=== PATIENT | female | born 1955 | race Caucasian/White ===

== ENCOUNTER → 2016-08-08 | Outpatient (CLI) | payer MEDICARE ==
[~2016-08-08] MED LIST: ALPRAZOLAM PO; AMBIEN PO; ASPIRIN81 M2 PO; AUGMENTIN875 M1 DOB; AUGMENTIN875 MG PO; CELEXA PO; CLONIDINE HCL0.1 MG PO; CYMBALTA PO; DAKIN'S MODIF1000 ML EXT; EFFEXOR PO; FLEXERIL10 MG PO; LISINOPRIL20 MG PO; LITHIUM PO; MELATONIN10 M1 PO; NIASPAN PO; OXYCODON HCL-AP1 TA2 PO; OXYCONTIN PO; OXYCONTIN60 MG PO; PREDNISONE5 M1 PO; PRILOSEC PO; ROXICODONE15 MG PO; SOMA PO; SYNTHROID PO; SYNTHROID0.1 MG PO; TOPIRAGEN100 MG PO; TOPROL XL PO; VALIUM10 MG PO; VICODIN 5/500 T1 TAB PO; VOLTAREN75 MG PO; ZESTORETIC 20/11 TAB PO; ZOCOR PO; ZOCOR20 MG PO; ZOFRAN SL; ZYVOX600 MG PO
--- NOTE | ~2016-08-08 | MY11 ---
[facility] A Service of [facility] RADIOLOGY TEXT RESULTS PATIENT: JUAN R BARR LOCATION: [facility] : 51 UNIT #: [id number] AGE: [address]: Segun Penn MD SEX: F ORDER DR: [id number] [address] [address] [id number] O MR#: [id number] Acc #: [id number] NAME: JUAN R BARR : 1955 SEX: F STUDY DATE/TIME: 08/08/2016 15:27 UNIT: [facility] ROOM: STUDY DESCRIPTION: MY Mammogram Screening Dig Dileep Attending Physician: Segun Penn M.D. Referring Physician: Segun Penn M.D. Ordering Physician: Segun Penn M.D. Primary Care Physician: Maximo Santo M.D. MEDICAL IMAGING REPORT This report is preliminary unless electronic signature is present. EXAM Bilateral digital screening mammogram with CAD. DATE OF EXAM 08/08/2016 INDICATIONS 61-year-old female for routine screening. No reported problems. No personal history of breast cancer. Family history positive in the patient's mother. No surgeries. TECHNIQUE CC and MLO views of the breast were obtained and reviewed with an FDA-approved CAD device. COMPARISON 05/04/2015, 05/01/2014, 03/15/2013. FINDINGS Breast parenchyma is heterogeneously dense. This degrades sensitivity of screening moderately. The pattern is unchanged. Mole markers are present. There is no new dominant nodule mass or suspicious clustered microcalcifications. Benign calcifications are present. Asymmetrically prominent breast tissue in the 12 o'clock position right breast, stable. IMPRESSION 1. Benign screening mammogram, 1 year followup recommended. 2. BIRADS category 2. Patients over the age of 40 are entered into a reminder system with target due date for the next mammogram. A result letter will also be sent to the patient. [facility] A Service of [facility] RADIOLOGY TEXT RESULTS PATIENT: JUAN R BARR LOCATION: [facility] : 51 UNIT #: [id number] AGE: [address]: Segun Penn MD SEX: F ORDER DR: BIRADS: 2 Benign findings. Dictated by... Jose Álvarez M.D. THIS IS AN ELECTRONICALLY VERIFIED REPORT Jose Álvarez M.D. at 08/11/2016 7:43 AM NAMAN/jazzy TD: 08/09/2016 00:26 JOB #: [id number] MEDICAL IMAGING REPORT
== END | disposition home or self-care (01) ==
LOC: SMAM 14:58
DX: Z12.31 Encounter for screening mammogram for malignant neoplasm of breast (principal); Z80.3 Family history of malignant neoplasm of breast
CPT/HCPCS: G0202

== ENCOUNTER 2017-02-08 13:13 | Emergency (ER) | payer MEDICARE ==
[~2017-02-08] VITALS: Ht 172.7 cm; Wt 93.0 kg
--- NOTE | ~2017-02-08 | CT4 ---
[facility]. [facility] A Service of [facility] RADIOLOGY TEXT RESULTS PATIENT: JUAN R BARR LOCATION: SED : 51 UNIT #: [id number] AGE: [address]: Zeny Galicia MD SEX: F ORDER DR: [id number] [address] [address] [id number] E MR#: [id number] Acc #: [id number] NAME: JUANR BARR : 1955 SEX: F STUDY DATE/TIME: 02/08/2017 14:18 UNIT: SED ROOM: STUDY DESCRIPTION: CT Abd and Pelv Wo Cont Attending Physician: Zeny Galicia M.D. Ordering Physician: Zeny Galicia M.D. Primary Care Physician: Maximo Santo M.D. MEDICAL IMAGING REPORT This report is preliminary unless electronic signature is present. EXAM CT abdomen and pelvis without contrast. HISTORY Diarrhea for 2 weeks. TECHNIQUE Axial images performed through the abdomen and pelvis without contrast. Multiplanar reconstructed images reviewed. This CT exam was performed with one or more of the following radiation dose reduction techniques: automatic exposure control, adjustment of mA and/or kV according to patient size, and iterative reconstruction. FINDINGS Abdomen: Lung bases unremarkable except for minimal interstitial prominence. Liver suggests mild fatty infiltration. The splenic granulomas. Gallbladder surgically absent. Pancreas, kidneys and adrenal glands appear normal. No free air or free fluid. The visualized GI tract to include the appendix normal. Retroperitoneum unremarkable. Pelvis: Bladder decompressed. Uterus appears atrophic. 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 There is chronic-appearing T1 compression fracture, about 50% loss of the anterior vertebral body height. IMPRESSION 1. No acute intraabdominal intrapelvic pathology identified in this patient with diarrhea for 2 weeks. 2. 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 There is a chronic-appearing anterior compression fracture deformity L1 with greater than 50% loss anterior vertebral body STS. [facility] A Service of [facility] RADIOLOGY TEXT RESULTS PATIENT: JUAN R BARR LOC[place]: [facility] [place] 51 UNIT #: [id number] AGE: [address]: Zeny Galicia MD SEX: F ORDER DR: height. 3. Not mentioned above, there is moderate L4-5 spinal stenosis due to circumferential disc bulge. There is also posterior disc bulging L5-S1. 4. Suspected hepatic steatosis. Dictated by... Tri Khan M.D. THIS IS AN ELECTRONICALLY VERIFIED REPORT Tri Khan M.D. at 02/09/2017 10:03 AM [facility] TD: 02/09/2017 09:10 JOB #: [id number] MEDICAL IMAGING REPORT Page 1 of 1
[2017-02-08 14:07] LABS: BASOPHIL# 0.2 X10e3 (0-0.3); BASOPHIL% 1.4 % (0-2.5); EOSINOPHIL# 0.2 X10e3 (0-0.7); EOSINOPHIL% 1.6 % (0.0-7.0); HEMATOCRIT 48.9 % (35.0-45.0); LYMPHOCYTE# 2.8 X10e3 (1.0-3.5); LYMPHOCYTE% 26.4 % (17.0-45.0); MEAN CELL VOLUME 95.3 FL (83-96); MEAN CORPUSCULAR HEMOGLOBIN 33.1 PG (28-34); MEAN CORPUSCULAR HGB CONC 34.7 g/dL (30-36); MEAN PLATELET VOLUME 8.5 FL (6.5-11.5); MONOCYTE# 0.7 X10e3 (0-1.0); MONOCYTE% 6.5 % (3.0-12.0); NEUTROPHIL# 6.7 X10e3 (1.5-7.1); NEUTROPHIL% 64.1 % (40-75); PLATELET COUNT 308 X10e3 (140-420); RED BLOOD COUNT 5.13 X10e (3.90-5.30); RED CELL DISTRIBUTION WIDTH 13.1 % (11.0-15.5); WHITE BLOOD COUNT 10.5 X10e3 (4.0-10.5)
[2017-02-08 14:09] LABS: DIFF IND NO
[2017-02-08 14:38] LABS: ALBUMIN SERUM 4.4 g/dL (3.5-5.0); BILIRUBIN, DIRECT 0.1 mg/dL (0.0-0.2); BILIRUBIN,INDIRECT 0.6 mg/dL (0.0-0.9); BILIRUBIN,TOTAL 0.7 mg/dL (0.2-2.0); CALCIUM SERUM 9.4 mg/dL (8.4-10.2); CREATININE SERUM 1.2 mg/dL (0.6-1.4); GLOM FILT RATE Estimated 48.1 mL/min (>60)
[2017-02-08 14:42] LABS: POTASSIUM 2.8 mmol/L (3.5-5.1)
[2017-02-08 14:43] LABS: URINE SOURCE CLEAN CATCH
[2017-02-08 14:48] LABS: URINE APPEARANCE HAZY; URINE BILIRUBIN NEG (NEG); URINE BLOOD NEG (NEG); URINE COLOR YELLOW; URINE GLUCOSE NEG (NORM); URINE KETONE NEG (NEG); URINE LEUKOCYTE ESTERASE NEG (NEG); URINE NITRATE NEG (NEG); URINE PH 5.5 (5-8); URINE PROTEIN 1+ (NEG); URINE SPECIFIC GRAVITY >=1.030 (1.003-1.035); URINE UROBILINOGEN 0.2 MG/DL (NORM)
[2017-02-08 14:50] LABS: MICRO INDICATED? YES
[2017-02-08 14:54] LABS: URINE RBC 0-2 /[HPF] (0-2)
[2017-02-08 14:55] LABS: CULTURE INDICATED? YES; URINE BACTERIA NEG (NEG); URINE GRANULAR CAST 0-2 /[HPF]; URINE MUCUS PRESENT; URINE SQUAMOUS EPITHELIAL CELL FEW /[HPF]; URINE TRANSITIONAL EPI CELLS OCCAS /[HPF]
== END 2017-02-08 15:01 | disposition home or self-care (01) ==
LOC: SED 13:13
PROVIDERS: Student in an Organized Health Care Education/Training Program
DX: R19.7 Diarrhea, unspecified (principal); E87.6 Hypokalemia; E78.5 Hyperlipidemia, unspecified; I10 Essential (primary) hypertension; F41.9 Anxiety disorder, unspecified; F32.9 Major depressive disorder, single episode, unspecified; F17.200 Nicotine dependence, unspecified, uncomplicated; Z79.899 Other long term (current) drug therapy; Z79.82 Long term (current) use of aspirin; Z88.1 Allergy status to other antibiotic agents; Z88.8 Allergy status to other drugs, medicaments and biological substances; Z88.6 Allergy status to analgesic agent
CPT/HCPCS: 36415; 74176; 80048; 80076; 81003; 82150; 83690; 85025; 87086; 99284